=== PATIENT | female | born 1950 | race Caucasian/White ===

== ENCOUNTER 2017-11-28 08:25 | Day surgery (SDC) | payer MEDICARE, OTHER ==
[2017-11-28] MEDS ORDERED: PROPOFOL 40 ML (10:15)
[2017-11-28] MEDS ORDERED: hydrALAzine 20 MG INJ (10:15)
[2017-11-28] MEDS ORDERED: PROPOFOL 20 ML (10:37)
== END 2017-11-28 11:22 | disposition home or self-care (01) ==
LOC: GIL 08:25
DX: R19.4 Change in bowel habit (principal); K57.90 Diverticulosis of intestine, part unspecified, without perforation or abscess without bleeding; K64.8 Other hemorrhoids; I10 Essential (primary) hypertension; J45.909 Unspecified asthma, uncomplicated; E66.9 Obesity, unspecified; Z68.41 Body mass index [BMI] 40.0-44.9, adult
CPT/HCPCS: 45380; 88305